=== PATIENT | female | born 1960 | race Caucasian/White ===

== ENCOUNTER 2017-04-23 14:37 | Inpatient (IN) | payer MEDICARE ==
[~2017-04-23] VITALS: Ht 175.3 cm; Wt 131.4 kg
[2017-04-23] MEDS ORDERED: NPH,100V SQ ×2 (15:24)
[2017-04-23] MEDS ORDERED: [UNRECOGNIZED DRUG - CODE] IV (15:24)
[2017-04-23] MEDS ORDERED: CEFX1I IV (15:24)
[2017-04-23] MEDS ORDERED: ATOR20TA86 PO (15:24)
[2017-04-23] MEDS ORDERED: HYDR10TA31 PO (15:24)
[2017-04-23] MEDS ORDERED: PRED10 PO (15:24)
[2017-04-23] MEDS ORDERED: DSS100 PO (15:24)
[2017-04-23] MEDS ORDERED: INSU100V3 SQ ×2 (15:24)
[2017-04-23] MEDS ORDERED: FERR-89 PO (15:24)
[2017-04-23] MEDS ORDERED: OMEP20 PO (15:24)
[2017-04-23] MEDS ORDERED: PERCT PO (15:24)
[2017-04-23] MEDS ORDERED: AMLO-512 PO (15:24)
[2017-04-23] MEDS ORDERED: ALBUTEROL SULFATE 2.5 MG/0.5 ML NEB SOLUTION NEB ONE (15:30)
[2017-04-23] MEDS ORDERED: IPRATROPIUM BROMIDE 0.5 MG/2.5 ML NEB SOLUTION NEB ONE (15:30)
[2017-04-23] MEDS ORDERED: AMPI2VIA9 IV (15:30)
[2017-04-23] MEDS ORDERED: CEFX2I IV (15:30)
[2017-04-23 16:01] LABS: BASOPHILS % (AUTO) 0.4 % (0.0-2.0); EOSINOPHILS % (AUTO) 0.5 % (1.0-6.0); HEMATOCRIT 26.2 % (36-46); HEMOGLOBIN 8.7 g/dL (12.0-16.0); LYMPHOCYTES # (AUTO) 1.4 K/uL (1.0-4.8); LYMPHOCYTES % (AUTO) 8.2 % (22.0-44.0); MEAN CORPUSCULAR HEMOGLOBIN 28.2 pg (26.0-34.0); MEAN CORPUSCULAR HGB CONC 33.1 G/dL (31.0-37.0); MEAN CORPUSCULAR VOLUME 85 fL (80-100); MONOCYTES # (AUTO) 0.7 K/uL (0.1-1.0); MONOCYTES % (AUTO) 4.2 % (2.0-9.0); NEUTROPHILS # (AUTO) 15.1 K/uL (1.8-7.7); PLATELET COUNT (AUTO) 375 K/uL (150-450); RED BLOOD CELL COUNT(AUTO) 3.07 MIL/uL (4.00-5.20); RED CELL DISTRIBUTION WIDTH 16.9 % (11.5-14.5)
[2017-04-23 16:06] LABS: NEUTROPHILS % (AUTO) 86.7 % (40.0-70.0)
[2017-04-23 16:14] LABS: ANION GAP 15 mmol/L (8-16); CALCIUM, TOTAL 8.8 mg/dL (8.8-10.5); CARBON DIOXIDE 20 mmol/L (22-29); CHLORIDE 106 mmol/L (98-107); CREATININE 2.45 mg/dL (0.60-1.30); GLOMERULAR FILTR. RATE CALC 20 mL/min (>60); GLUCOSE,RANDOM 239 mg/dL (70-110); POTASSIUM 4.3 mmol/L (3.5-5.1); SODIUM SERUM 141 mmol/L (136-145); UREA NITROGEN, BLOOD 45 mg/dL (7-18)
[2017-04-23 16:35] LABS: B-TYPE NATRIURETIC PEPTIDE 2030 pg/mL (0-100)
[2017-04-23 16:38] LABS: ALANINE AMINOTRANSFERASE 16 U/L (12-78); ALBUMIN 2.6 g/dL (3.4-5.0); ALKALINE PHOSPHATASE 71 U/L (46-116); ASPARTATE AMINOTRANSFERASE 12 U/L (15-37); BILIRUBIN,TOTAL 0.3 mg/dL (0.1-1.0); CREATINE KINASE MB 3.1 ng/mL (0-5); CREATINE KINASE, TOTAL 122 U/L (26-192)
[2017-04-23] MEDS ORDERED: FUROSEMIDE 40 MG/4 ML VIAL IVP ONE (16:45)
[2017-04-23] MEDS ORDERED: NITROGLYCERIN 2% (1 GM=INCH) PACKET TP ONE (16:45)
[2017-04-23] MEDS ORDERED: 0.9% SODIUM CHLORIDE 5 ML NEB SOLUTION NEB ONE (17:00)
[2017-04-23] MEDS ORDERED: AZITHROMYCIN 500 MG/NS 250 ML IV ONE (17:00)
[2017-04-23] MEDS ORDERED: CefTRIAXone 1 GM/DEXTROSE 50 ML IV ONE ×2 (17:00→21:30)
[2017-04-23 17:32] LABS: GLUCOSE,POINT OF CARE 269 MG/DL (70-110)
[2017-04-23 18:10] LABS: PLATELET MORPHOLOGY COMMENT NORMAL
[2017-04-23 18:17] LABS: INFLUENZA TYPE A NEGATIVE FOR TYPE A (NEGATIVE); INFLUENZA TYPE B NEGATIVE FOR TYPE B (NEGATIVE)
[2017-04-23] MEDS ORDERED: ACETAMINOPHEN 325 MG TABLET PO PRN (18:45)
[2017-04-23] MEDS ORDERED: 0.9% SODIUM CHLORIDE 10 ML SYRINGE IVP PRN (18:45)
[2017-04-23] MEDS ORDERED: IPRATROPIUM BROMIDE 0.5 MG/2.5 ML NEB SOLUTION NEB SCH (19:00)
[2017-04-23] MEDS ORDERED: ALBUTEROL SULFATE 2.5 MG/0.5 ML NEB SOLUTION NEB SCH (19:00)
[2017-04-23 19:07] LABS: APPEARANCE,URINE TURBID (CLEAR); BILIRUBIN,URINE NEGATIVE (NEGATIVE); GLUCOSE, URINE (UA) NEGATIVE (NEGATIVE); KETONES,URINE NEGATIVE (NEGATIVE); LEUKOCYTE ESTERASE ,URINE MODERATE (NEGATIVE); NITRATE,URINE NEGATIVE (NEGATIVE); OCCULT BLOOD,URINE MODERATE (NEGATIVE); PH,URINE 5.5 (5.0-8.0); PROTEIN,URINE SEE CONFIRM (NEGATIVE); UROBILINOGEN,URINE 0.2 mg/dL (<=1.0)
[2017-04-23 19:09] LABS: ABG A-A DIFF O2 409.2 mmHg (10-20.0); ABG BASE EXCESS -5.5 mmol/L (-2.0-3.0); ABG CARBOXYHEMOGLOBIN 1.5 % (0.0-1.5); ABG HCO3 20.4 mmol/L (22.0-26.0); ABG METHEMOGLOBIN 0.6 % (0.0-1.5); ABG OXYGEN CONTENT 12.5 mL/dL (15.0-23.0); ABG OXYGEN SATURATION 98.7 % (95.0-98.0); ABG OXYHEMOGLOBIN 96.6 % (94.0-100.0); ABG PCO2 35 mmHg (35-45); ABG PH 7.368 (7.35-7.450); PO2, ARTERIAL BG 124.2 mmHg (84.0-92.0); SOURCE, BLOOD GAS ARTERIAL; TEMPERATURE, FAHRENHEIT, BG 98.6 FAHREN (96.0-98.6)
[2017-04-23 19:10] LABS: O2 DEVICE,BLOOD GAS BIPAP (ROOM AIR); SITE, BLOOD GAS LFT RADIAL
[2017-04-23 19:17] LABS: BACTERIA,URINE Few /HPF (None Seen); SULFOSALICYLIC ACID,URINE 3+ (Negative); WBC,URINE 26-50 /HPF (0-5)
[2017-04-23 19:18] LABS: SQUAMOUS EPITHELIAL CELL,UR Moderate /LPF (None Seen); YEAST,URINE Many /HPF (None Seen)
[2017-04-23] MEDS ORDERED: MAGNESIUM HYDROXIDE SUSPENSION 30 ML UDCUP PO PRN (20:15)
[2017-04-23] MEDS ORDERED: ZOLPIDEM TARTRATE 5 MG TABLET PO PRN (20:15)
[2017-04-23] MEDS ORDERED: ONDANSETRON HCL 4 MG/2 ML VIAL IVP PRN (20:15)
[2017-04-23] MEDS ORDERED: BISACODYL 10 MG RECTAL RECTAL SUPPOSITORY PR PRN (20:15)
[2017-04-23] MEDS ORDERED: DEXTROSE 50%-WATER 25 GM/50 ML SYRINGE IVP PRN (20:45)
[2017-04-23] MEDS ORDERED: AMPICILLIN SODIUM 2 GM IV SCH (21:00)
[2017-04-23 21:07] VITALS: BP 127/65
[2017-04-23] MEDS ORDERED: SODIUM CHLORIDE 0.9% 500 ML IV ONE (21:50)
[2017-04-23] MEDS: FUROSEMIDE 20 MG/2 ML VIAL IVP SCH (21:55)
[2017-04-23] MEDS: DOCUSATE SODIUM 100 MG CAPSULE PO SCH (21:55)
[2017-04-23] MEDS: HEPARIN SODIUM,PORCINE 5,000 UNITS/ML VIAL SQ SCH (21:55)
[2017-04-23] MEDS ORDERED: AMPICILLIN SODIUM 2 GM/NS 100 ML IV SCH ×3 (22:00)
[2017-04-23] MEDS: PIPERACILLIN SODIUM/TAZOBACTAM 2.25 GM in DEXTROSE 5%-WATER 50 ML IV SCH (22:24)
[2017-04-23] MEDS ORDERED: VANCOMYCIN HCL IV ONE (23:00)
[2017-04-23] MEDS ORDERED: WATER IV ONE (23:00)
[2017-04-23] MEDS ORDERED: DEXTROSE 5% IV ONE (23:00)
[2017-04-23] MEDS ORDERED: VANCOMYCIN HCL 1 GM/D5% WATER 200 ML IV ONE (23:30)
[2017-04-23 23:49] VITALS: BP 134/64
[2017-04-24] MEDS ORDERED: VANCOMYCIN HCL 1 GM/D5% WATER 200 ML IV ONE (01:30)
[2017-04-24] MEDS: PIPERACILLIN SODIUM/TAZOBACTAM 2.25 GM in DEXTROSE 5%-WATER 50 ML IV SCH ×4 (04:09→22:39)
[2017-04-24] MEDS: ALBUTEROL SULFATE 2.5 MG/0.5 ML NEB SOLUTION NEB PRN ×2 (06:02→08:24)
[2017-04-24] MEDS: IPRATROPIUM BROMIDE 0.5 MG/2.5 ML NEB SOLUTION NEB PRN ×2 (06:02→08:24)
[2017-04-24 06:07] VITALS: BP 151/69
[2017-04-24] MEDS: OxyCODONE HCL/ACETAMINOPHEN 5-325 MG TABLET PO PRN ×3 (06:16→20:09)
[2017-04-24] MEDS: LORazepam 1 MG TABLET PO PRN ×3 (06:16→20:34)
[2017-04-24 06:23] LABS: BASOPHILS % (AUTO) 0.3 % (0.0-2.0); EOSINOPHILS % (AUTO) 1.2 % (1.0-6.0); HEMATOCRIT 24.6 % (36-46); HEMOGLOBIN 8.1 g/dL (12.0-16.0); LYMPHOCYTES # (AUTO) 2.9 K/uL (1.0-4.8); LYMPHOCYTES % (AUTO) 15.9 % (22.0-44.0); MEAN CORPUSCULAR HEMOGLOBIN 28.2 pg (26.0-34.0); MEAN CORPUSCULAR HGB CONC 32.9 G/dL (31.0-37.0); MEAN CORPUSCULAR VOLUME 86 fL (80-100); MONOCYTES # (AUTO) 1.1 K/uL (0.1-1.0); NEUTROPHILS # (AUTO) 13.8 K/uL (1.8-7.7); NEUTROPHILS % (AUTO) 76.6 % (40.0-70.0); PLATELET COUNT (AUTO) 395 K/uL (150-450); RED BLOOD CELL COUNT(AUTO) 2.86 MIL/uL (4.00-5.20); RED CELL DISTRIBUTION WIDTH 17.1 % (11.5-14.5)
[2017-04-24] MEDS: INSULIN ASPART 100 UNITS/ML SQ PRN ×3 (06:31→17:43)
[2017-04-24 06:48] LABS: ALBUMIN 2.4 g/dL (3.4-5.0); BILIRUBIN,TOTAL 0.4 mg/dL (0.1-1.0); CALCIUM, TOTAL 8.5 mg/dL (8.8-10.5); CHOL/HDL RATIO 2.7 (3.9-5.7); CREATININE 2.46 mg/dL (0.60-1.30); FREE T4 (FREE THYROXINE) 1.18 ng/dL (0.76-1.46); THYROID STIMULATING HORMONE 1.22 uIU/mL (0.36-3.74); TOTAL PROTEIN, SERUM 7.4 g/dL (6.4-8.2)
[2017-04-24 07:18] LABS: HEMOGLOBIN A1C 8.8 % (4.5-6.2)
[2017-04-24 07:51] VITALS: BP 135/64
[2017-04-24] MEDS: VANCOMYCIN HCL 1.5 GM in DEXTROSE 5%-WATER 250 ML IV SCH (08:36)
[2017-04-24] MEDS: PANTOPRAZOLE SODIUM 40 MG/VIAL IVP SCH (08:37)
[2017-04-24] MEDS: HEPARIN SODIUM,PORCINE 5,000 UNITS/ML VIAL SQ SCH ×2 (08:37→20:09)
[2017-04-24] MEDS: DOCUSATE SODIUM 100 MG CAPSULE PO SCH ×2 (08:37→20:08)
[2017-04-24] MEDS: FERROUS SULFATE 325 MG EC TABLET PO SCH (08:37)
[2017-04-24] MEDS: ATORVASTATIN CALCIUM 20 MG TABLET PO SCH (08:37)
[2017-04-24] MEDS: PredniSONE 10 MG TABLET PO SCH (08:37)
[2017-04-24 08:38] LABS: FOLATE SERUM 11.2 ng/mL (5.4-)
[2017-04-24] MEDS: FUROSEMIDE 20 MG/2 ML VIAL IVP SCH (10:01)
[2017-04-24] MEDS: CefTRIAXone SODIUM 2 GM in DEXTROSE 5%-WATER 50 ML IV SCH ×2 (10:33→20:06)
[2017-04-24 11:41] VITALS: BP 122/45
[2017-04-24] MEDS: ASPIRIN 81 MG EC TABLET PO SCH (14:12)
[2017-04-24] MEDS: PARoxetine HCL 20 MG TABLET PO SCH (14:12)
[2017-04-24] MEDS: EPOETIN ALFA 10,000 UNITS/ML VIAL SQ SCH (14:12)
[2017-04-24 15:14] VITALS: BP 128/67
[2017-04-24 15:47] LABS: GLUCOMETER DEV NAME(LOC) 5N 2R; GLUCOSE,POINT OF CARE 212 MG/DL (70-110)
[2017-04-24] MEDS: FUROSEMIDE 40 MG/4 ML VIAL IVP SCH ×2 (16:00→20:08)
[2017-04-24] MEDS ORDERED: FUROSEMIDE 100 MG/10 ML VIAL IVP SCH (16:00)
[2017-04-24 16:06] LABS: ABG A-A DIFF O2 237.8 mmHg (10-20.0); ABG BASE EXCESS -4.5 mmol/L (-2.0-3.0); ABG CARBOXYHEMOGLOBIN 1.1 % (0.0-1.5); ABG HCO3 21.1 mmol/L (22.0-26.0); ABG METHEMOGLOBIN 0.3 % (0.0-1.5); ABG OXYGEN CONTENT 12.9 mL/dL (15.0-23.0); ABG OXYGEN SATURATION 94.8 % (95.0-98.0); ABG OXYHEMOGLOBIN 93.5 % (94.0-100.0); ABG PCO2 37 mmHg (35-45); ABG PH 7.373 (7.35-7.450); ABG TOTAL HEMOGLOBIN 9.7 G/dL (12.0-18.0); O2 DEVICE,BLOOD GAS BIPAP (ROOM AIR); PO2, ARTERIAL BG 77.6 mmHg (84.0-92.0); SITE, BLOOD GAS LFT RADIAL; SOURCE, BLOOD GAS ARTERIAL; TEMPERATURE, FAHRENHEIT, BG 98.6 FAHREN (96.0-98.6)
[2017-04-24] MEDS ORDERED: CefTRIAXone 1 GM/DEXTROSE 50 ML IV SCH (17:00)
[2017-04-24] MEDS ORDERED: INSULIN REGULAR, HUMAN 100 UNITS/ML SQ SCH (17:30)
[2017-04-24] MEDS ORDERED: AZITHROMYCIN 500 MG/NS 250 ML IV SCH (18:00)
[2017-04-24 19:38] LABS: CREATININE,URINE RANDOM 92.5 mg/dL (30.0-125.0); SODIUM,URINE RANDOM 63 mmol/l (20-110); UREA NITROGEN,URINE RANDOM 444 mg/dL (350-1000)
[2017-04-24] MEDS ORDERED: SODIUM CHLORIDE 0.9% 250 ML IV ONE (19:48)
[2017-04-24 20:01] LABS: PROTEIN,URINE RANDOM 782 mg/dL (0-11.9)
[2017-04-24 20:05] VITALS: BP 154/83
[2017-04-24] MEDS: INSULIN NPH,HUMAN ISOPHANE 100 UNITS/ML SQ SCH (20:12)
[2017-04-24] MEDS ORDERED: CefTRIAXone SODIUM 2 GM/VIAL IV SCH (21:00)
[2017-04-24 21:05] VITALS: BP 157/92
[2017-04-24] MEDS: HydrALAZINE HCL 10 MG TABLET PO SCH (21:56)
[2017-04-25] VITALS (8 sets, daily range): BP systolic 14–160; BP diastolic 51–75
[2017-04-25] MEDS: LORazepam 1 MG TABLET PO PRN ×3 (03:17→22:09)
[2017-04-25] MEDS: PIPERACILLIN SODIUM/TAZOBACTAM 2.25 GM in DEXTROSE 5%-WATER 50 ML IV SCH ×4 (03:17→22:10)
[2017-04-25] MEDS: OxyCODONE HCL/ACETAMINOPHEN 5-325 MG TABLET PO PRN ×3 (03:17→10:08)
[2017-04-25] MEDS: INSULIN REGULAR, HUMAN 100 UNITS/ML SQ SCH (06:05)
[2017-04-25 06:06] LABS: BASOPHILS % (AUTO) 0.3 % (0.0-2.0); EOSINOPHILS % (AUTO) 1.7 % (1.0-6.0); HEMATOCRIT 23.8 % (36-46); HEMOGLOBIN 7.8 g/dL (12.0-16.0); LYMPHOCYTES # (AUTO) 2.6 K/uL (1.0-4.8); LYMPHOCYTES % (AUTO) 18.6 % (22.0-44.0); MEAN CORPUSCULAR HEMOGLOBIN 28.6 pg (26.0-34.0); MEAN CORPUSCULAR VOLUME 87 fL (80-100); MONOCYTES # (AUTO) 0.7 K/uL (0.1-1.0); MONOCYTES % (AUTO) 4.8 % (2.0-9.0); NEUTROPHILS # (AUTO) 10.5 K/uL (1.8-7.7); NEUTROPHILS % (AUTO) 74.6 % (40.0-70.0); PLATELET COUNT (AUTO) 306 K/uL (150-450); RED BLOOD CELL COUNT(AUTO) 2.75 MIL/uL (4.00-5.20)
[2017-04-25 06:27] LABS: CALCIUM, TOTAL 8.3 mg/dL (8.8-10.5); CREATININE 2.77 mg/dL (0.60-1.30); POTASSIUM 3.6 mmol/L (3.5-5.1)
[2017-04-25] MEDS: INSULIN NPH,HUMAN ISOPHANE 100 UNITS/ML SQ SCH ×2 (09:00→21:00)
[2017-04-25] MEDS ORDERED: OMEPRAZOLE 20 MG CAPSULE PO SCH (09:00)
[2017-04-25] MEDS ORDERED: SODIUM CHLORIDE 0.9% 100 ML ONE (10:04)
[2017-04-25] MEDS: PARoxetine HCL 20 MG TABLET PO SCH (10:08)
[2017-04-25] MEDS: PredniSONE 10 MG TABLET PO SCH (10:08)
[2017-04-25] MEDS: FERROUS SULFATE 325 MG EC TABLET PO SCH (10:08)
[2017-04-25] MEDS: AmLODIPine BESYLATE 10 MG TABLET PO SCH (10:08)
[2017-04-25] MEDS: PANTOPRAZOLE SODIUM 40 MG/VIAL IVP SCH (10:09)
[2017-04-25] MEDS: CefTRIAXone SODIUM 2 GM in DEXTROSE 5%-WATER 50 ML IV SCH ×2 (10:09→22:09)
[2017-04-25] MEDS: FUROSEMIDE 40 MG/4 ML VIAL IVP SCH ×3 (10:09→22:10)
[2017-04-25] MEDS: HEPARIN SODIUM,PORCINE 5,000 UNITS/ML VIAL SQ SCH ×2 (10:24→22:10)
[2017-04-25 10:28] LABS: GLUCOSE,POINT OF CARE 127 MG/DL (70-110)
[2017-04-25] MEDS: VANCOMYCIN HCL 1.5 GM in DEXTROSE 5%-WATER 250 ML IV SCH (12:00)
[2017-04-25] MEDS: ATORVASTATIN CALCIUM 20 MG TABLET PO SCH (12:00)
[2017-04-25] MEDS: HydrALAZINE HCL 10 MG TABLET PO SCH ×2 (12:00→22:09)
[2017-04-25] MEDS: ASPIRIN 81 MG EC TABLET PO SCH (12:01)
[2017-04-25] MEDS: DOCUSATE SODIUM 100 MG CAPSULE PO SCH ×2 (12:01→22:09)
[2017-04-25 17:28] LABS: GLUCOMETER DEV NAME(LOC) 5N 1M; GLUCOSE,POINT OF CARE 162 MG/DL (70-110)
[2017-04-25 17:28] LABS: GLUCOMETER DEV NAME(LOC) 5N 1M; GLUCOSE,POINT OF CARE 238 MG/DL (70-110)
[2017-04-25 17:29] LABS: GLUCOMETER DEV NAME(LOC) 5N 1M; GLUCOSE,POINT OF CARE 160 MG/DL (70-110)
[2017-04-25 17:33] LABS: GLUCOMETER DEV NAME(LOC) 5N 2R; GLUCOSE,POINT OF CARE 191 MG/DL (70-110)
[2017-04-25 18:03] LABS: GLUCOMETER DEV NAME(LOC) 5N 1M; GLUCOSE,POINT OF CARE 174 MG/DL (70-110)
[2017-04-25 18:53] LABS: GLUCOSE,POINT OF CARE 172 MG/DL (70-110)
[2017-04-25] MEDS: INSULIN ASPART 100 UNITS/ML SQ PRN (21:59)
[2017-04-26 00:18] LABS: GLUCOMETER DEV NAME(LOC) 5N 1M; GLUCOSE,POINT OF CARE 170 MG/DL (70-110)
[2017-04-26 00:46] VITALS: BP 152/75
[2017-04-26] MEDS: PIPERACILLIN SODIUM/TAZOBACTAM 2.25 GM in DEXTROSE 5%-WATER 50 ML IV SCH ×4 (04:19→22:29)
[2017-04-26 05:00] VITALS: BP 150/78
[2017-04-26] MEDS: INSULIN REGULAR, HUMAN 100 UNITS/ML SQ SCH (06:13)
[2017-04-26] MEDS: OxyCODONE HCL/ACETAMINOPHEN 5-325 MG TABLET PO PRN ×2 (06:17→22:29)
[2017-04-26 07:13] VITALS: BP 160/64
[2017-04-26] MEDS: LORazepam 1 MG TABLET PO PRN (07:33)
[2017-04-26] MEDS: ASPIRIN 81 MG EC TABLET PO SCH (07:37)
[2017-04-26] MEDS: VANCOMYCIN HCL 1.5 GM in DEXTROSE 5%-WATER 250 ML IV SCH (07:37)
[2017-04-26] MEDS: DOCUSATE SODIUM 100 MG CAPSULE PO SCH ×2 (07:39→20:27)
[2017-04-26] MEDS: INSULIN NPH,HUMAN ISOPHANE 100 UNITS/ML SQ SCH (07:40)
[2017-04-26] MEDS: HydrALAZINE HCL 10 MG TABLET PO SCH ×2 (07:48→20:27)
[2017-04-26] MEDS: ATORVASTATIN CALCIUM 20 MG TABLET PO SCH (07:48)
[2017-04-26] MEDS: FERROUS SULFATE 325 MG EC TABLET PO SCH (07:48)
[2017-04-26] MEDS: HEPARIN SODIUM,PORCINE 5,000 UNITS/ML VIAL SQ SCH ×2 (07:49→20:28)
[2017-04-26] MEDS: FUROSEMIDE 40 MG/4 ML VIAL IVP SCH ×2 (07:49→20:27)
[2017-04-26] MEDS: AmLODIPine BESYLATE 10 MG TABLET PO SCH (07:49)
[2017-04-26] MEDS: PARoxetine HCL 20 MG TABLET PO SCH (07:49)
[2017-04-26] MEDS: PANTOPRAZOLE SODIUM 40 MG/VIAL IVP SCH (07:49)
[2017-04-26 08:04] LABS: BASOPHILS # (AUTO) 0.04 K/uL (0.00-0.20); BASOPHILS % (AUTO) 0.3 % (0.0-2.0); EOSINOPHILS # (AUTO) 0.31 K/uL (0.00-0.70); EOSINOPHILS % (AUTO) 2.31 % (1.0-6.0); HEMATOCRIT 23.7 % (36-46); HEMOGLOBIN 7.6 g/dL (12.0-16.0); LYMPHOCYTES # (AUTO) 2.7 K/uL (1.0-4.8); LYMPHOCYTES % (AUTO) 20.2 % (22.0-44.0); MEAN CORPUSCULAR HEMOGLOBIN 28.3 pg (26.0-34.0); MEAN CORPUSCULAR HGB CONC 32.1 G/dL (31.0-37.0); MEAN CORPUSCULAR VOLUME 88 fL (80-100); MONOCYTES # (AUTO) 0.6 K/uL (0.1-1.0); MONOCYTES % (AUTO) 4.4 % (2.0-9.0); NEUTROPHILS # (AUTO) 9.7 K/uL (1.8-7.7); NEUTROPHILS % (AUTO) 72.8 % (40.0-70.0); PLATELET COUNT (AUTO) 315 K/uL (150-450); RED BLOOD CELL COUNT(AUTO) 2.69 MIL/uL (4.00-5.20); RED CELL DISTRIBUTION WIDTH 17.3 % (11.5-14.5)
[2017-04-26 09:55] LABS: CALCIUM, TOTAL 8.3 mg/dL (8.8-10.5); CREATININE 2.79 mg/dL (0.60-1.30); VANCOMYCIN,RANDOM 31.9 mcg/mL (25.0-50.0)
[2017-04-26 10:22] LABS: POTASSIUM 3.6 mmol/L (3.5-5.1)
[2017-04-26] MEDS: PredniSONE 10 MG TABLET PO SCH (10:51)
[2017-04-26] MEDS: CefTRIAXone SODIUM 2 GM in DEXTROSE 5%-WATER 50 ML IV SCH ×2 (10:51→20:28)
[2017-04-26] MEDS: EPOETIN ALFA 10,000 UNITS/ML VIAL SQ SCH (10:51)
[2017-04-26 11:43] VITALS: BP 149/89
[2017-04-26] MEDS: LORazepam 2 MG/ML VIAL IVP PRN ×2 (11:58→16:24)
[2017-04-26] MEDS: INSULIN ASPART 100 UNITS/ML SQ PRN ×3 (12:08→21:16)
[2017-04-26 12:26] LABS: ORGANISM ID Not indicated.; S PNEUMO SOURCE Urine; STREP PNEUMONIAE AG URINE Negative (Negative); STREP.PNEUMO BODY FLUID CULT. Not Indicated
[2017-04-26 15:22] LABS: LEGIONELLA PNEUMO AG URINE Negative (Negative)
[2017-04-26 15:33] VITALS: BP 152/64
[2017-04-26 19:55] VITALS: BP 154/69
[2017-04-26 23:07] LABS: GLUCOMETER DEV NAME(LOC) 5N 1M; GLUCOSE,POINT OF CARE 116 MG/DL (70-110)
[2017-04-26 23:07] LABS: GLUCOMETER DEV NAME(LOC) 5N 1M; GLUCOSE,POINT OF CARE 208 MG/DL (70-110)
[2017-04-26 23:08] LABS: GLUCOMETER DEV NAME(LOC) 5N 1M; GLUCOSE,POINT OF CARE 223 MG/DL (70-110)
[2017-04-26 23:08] LABS: GLUCOMETER DEV NAME(LOC) 5N 1M; GLUCOSE,POINT OF CARE 187 MG/DL (70-110)
[2017-04-27] VITALS (8 sets, daily range): BP systolic 135–161; BP diastolic 61–79
[2017-04-27] MEDS: PIPERACILLIN SODIUM/TAZOBACTAM 2.25 GM in DEXTROSE 5%-WATER 50 ML IV SCH ×4 (04:22→21:39)
[2017-04-27] MEDS: INSULIN ASPART 100 UNITS/ML SQ PRN ×3 (06:05→21:05)
[2017-04-27 06:29] LABS: GLUCOMETER DEV NAME(LOC) 5N 2R; GLUCOSE,POINT OF CARE 169 MG/DL (70-110)
[2017-04-27 07:42] LABS: CREATININE 2.66 mg/dL (0.60-1.30)
[2017-04-27] MEDS: FUROSEMIDE 40 MG/4 ML VIAL IVP SCH ×2 (08:02→20:43)
[2017-04-27] MEDS: CefTRIAXone SODIUM 2 GM in DEXTROSE 5%-WATER 50 ML IV SCH ×2 (08:02→20:24)
[2017-04-27] MEDS: HEPARIN SODIUM,PORCINE 5,000 UNITS/ML VIAL SQ SCH ×2 (08:03→20:44)
[2017-04-27] MEDS: PANTOPRAZOLE SODIUM 40 MG/VIAL IVP SCH (08:03)
[2017-04-27] MEDS: LORazepam 1 MG TABLET PO PRN (08:17)
[2017-04-27 08:44] LABS: CALCIUM, TOTAL 8.3 mg/dL (8.8-10.5); POTASSIUM 3.4 mmol/L (3.5-5.1)
[2017-04-27] MEDS: VANCOMYCIN HCL 1 GM/D5% WATER 200 ML IV SCH (09:08)
[2017-04-27] MEDS: FERROUS SULFATE 325 MG EC TABLET PO SCH (09:11)
[2017-04-27] MEDS: HydrALAZINE HCL 10 MG TABLET PO SCH ×2 (09:11→21:39)
[2017-04-27] MEDS: PARoxetine HCL 20 MG TABLET PO SCH (09:12)
[2017-04-27] MEDS: PredniSONE 10 MG TABLET PO SCH (09:12)
[2017-04-27] MEDS: DOCUSATE SODIUM 100 MG CAPSULE PO SCH ×2 (09:12→20:42)
[2017-04-27] MEDS: AmLODIPine BESYLATE 10 MG TABLET PO SCH (09:12)
[2017-04-27] MEDS: ATORVASTATIN CALCIUM 20 MG TABLET PO SCH (09:12)
[2017-04-27] MEDS: ASPIRIN 81 MG EC TABLET PO SCH (09:12)
[2017-04-27] MEDS: INSULIN DETEMIR 100 UNITS/ML SQ SCH (09:15)
[2017-04-27] MEDS: OxyCODONE HCL/ACETAMINOPHEN 5-325 MG TABLET PO PRN (09:17)
[2017-04-27] MEDS: LORazepam 2 MG/ML VIAL IVP PRN ×2 (11:16→16:22)
[2017-04-27] MEDS ORDERED: SODIUM CHLORIDE 0.9% 50 ML ONE (11:26)
[2017-04-27] MEDS ORDERED: POTASSIUM CHLORIDE 10 MEQ ER TABLET PO ONE (11:30)
[2017-04-27] MEDS: ENALAPRIL MALEATE 5 MG TABLET PO SCH (11:30)
[2017-04-27] MEDS ORDERED: SODIUM CHLORIDE 0.9% 500 ML IV ONE (16:17)
[2017-04-27 17:28] LABS: GLUCOMETER DEV NAME(LOC) 6N 2D; GLUCOSE,POINT OF CARE 208 MG/DL (70-110)
[2017-04-27 23:43] LABS: GLUCOMETER DEV NAME(LOC) 6N 2D; GLUCOSE,POINT OF CARE 192 MG/DL (70-110)
[2017-04-28] VITALS: BP 149/76
[2017-04-28] MEDS: LORazepam 1 MG TABLET PO PRN (02:44)
[2017-04-28] MEDS: PIPERACILLIN SODIUM/TAZOBACTAM 2.25 GM in DEXTROSE 5%-WATER 50 ML IV SCH ×4 (03:43→22:06)
[2017-04-28] MEDS ORDERED: SODIUM CHLORIDE 0.9% 500 ML IV ONE (03:47)
[2017-04-28 04:00] VITALS: BP 127/67
[2017-04-28] MEDS: OxyCODONE HCL/ACETAMINOPHEN 5-325 MG TABLET PO PRN (05:47)
[2017-04-28] MEDS: INSULIN ASPART 100 UNITS/ML SQ PRN (06:31)
[2017-04-28 06:52] LABS: GLUCOMETER DEV NAME(LOC) 6N 2D; GLUCOSE,POINT OF CARE 146 MG/DL (70-110)
[2017-04-28 07:38] LABS: BASOPHILS # (AUTO) 0.07 K/uL (0.00-0.20); BASOPHILS % (AUTO) 0.4 % (0.0-2.0); EOSINOPHILS # (AUTO) 0.43 K/uL (0.00-0.70); EOSINOPHILS % (AUTO) 2.78 % (1.0-6.0); HEMATOCRIT 26.6 % (36-46); HEMOGLOBIN 8.7 g/dL (12.0-16.0); LYMPHOCYTES # (AUTO) 2.7 K/uL (1.0-4.8); LYMPHOCYTES % (AUTO) 17.9 % (22.0-44.0); MEAN CORPUSCULAR HEMOGLOBIN 28.4 pg (26.0-34.0); MEAN CORPUSCULAR HGB CONC 32.5 G/dL (31.0-37.0); MEAN CORPUSCULAR VOLUME 87 fL (80-100); MONOCYTES # (AUTO) 0.8 K/uL (0.1-1.0); MONOCYTES % (AUTO) 5.2 % (2.0-9.0); NEUTROPHILS # (AUTO) 11.3 K/uL (1.8-7.7); NEUTROPHILS % (AUTO) 73.7 % (40.0-70.0); PLATELET COUNT (AUTO) 371 K/uL (150-450); RED BLOOD CELL COUNT(AUTO) 3.05 MIL/uL (4.00-5.20); RED CELL DISTRIBUTION WIDTH 17.2 % (11.5-14.5)
[2017-04-28 07:54] LABS: CALCIUM, TOTAL 8.8 mg/dL (8.8-10.5); CREATININE 2.51 mg/dL (0.60-1.30); MAGNESIUM 1.9 mg/dL (1.80-2.40); PHOSPHORUS 3.8 mg/dL (2.5-4.9); POTASSIUM 3.3 mmol/L (3.5-5.1)
[2017-04-28] MEDS: FERROUS SULFATE 325 MG EC TABLET PO SCH (08:00)
[2017-04-28] MEDS: ENALAPRIL MALEATE 5 MG TABLET PO SCH (09:00)
[2017-04-28] MEDS: INSULIN DETEMIR 100 UNITS/ML SQ SCH (09:00)
[2017-04-28] MEDS: AmLODIPine BESYLATE 10 MG TABLET PO SCH (09:00)
[2017-04-28] MEDS: HydrALAZINE HCL 10 MG TABLET PO SCH ×2 (09:00→21:00)
[2017-04-28] MEDS: HEPARIN SODIUM,PORCINE 5,000 UNITS/ML VIAL SQ SCH ×2 (09:00→21:17)
[2017-04-28] MEDS: PARoxetine HCL 20 MG TABLET PO SCH (09:00)
[2017-04-28] MEDS: PANTOPRAZOLE SODIUM 40 MG/VIAL IVP SCH (09:00)
[2017-04-28] MEDS: DOCUSATE SODIUM 100 MG CAPSULE PO SCH ×2 (09:00→21:00)
[2017-04-28] MEDS: PredniSONE 10 MG TABLET PO SCH (09:00)
[2017-04-28] MEDS: ASPIRIN 81 MG EC TABLET PO SCH (09:00)
[2017-04-28] MEDS: ATORVASTATIN CALCIUM 20 MG TABLET PO SCH (09:00)
[2017-04-28 10:23] LABS: GLUCOMETER DEV NAME(LOC) 5N 1M; GLUCOSE,POINT OF CARE 217 MG/DL (70-110)
[2017-04-28] MEDS: LORazepam 2 MG/ML VIAL IVP PRN ×2 (10:29→15:34)
[2017-04-28] MEDS: FUROSEMIDE 40 MG/4 ML VIAL IVP SCH ×2 (10:32→21:19)
[2017-04-28] MEDS: CefTRIAXone SODIUM 2 GM in DEXTROSE 5%-WATER 50 ML IV SCH ×2 (10:43→21:20)
[2017-04-28] MEDS: VANCOMYCIN HCL 1 GM/D5% WATER 200 ML IV SCH (10:46)
[2017-04-28] MEDS: EPOETIN ALFA 10,000 UNITS/ML VIAL SQ SCH (10:46)
[2017-04-28 11:00] VITALS: BP 155/77
[2017-04-28 11:53] LABS: GLUCOMETER DEV NAME(LOC) 6N 1E; GLUCOSE,POINT OF CARE 181 MG/DL (70-110)
[2017-04-28] MEDS ORDERED: HYDROmorphone 2 MG/ML SYRINGE ONE (13:58)
[2017-04-28] MEDS: HYDROmorphone 2 MG/ML SYRINGE IVP SCH ×5 (14:04→23:50)
[2017-04-28] MEDS: POTASSIUM CHL 10 MEQ/WATER 50 ML IV SCH ×2 (14:10→15:34)
[2017-04-28] MEDS ORDERED: SODIUM CHLORIDE 0.9% 1,000 ML IV ONE (15:42)
[2017-04-28 15:55] VITALS: BP 134/79
[2017-04-28 23:54] VITALS: BP 133/73
[2017-04-29] MEDS: LORazepam 2 MG/ML VIAL IVP PRN ×4 (00:06→17:12)
[2017-04-29] MEDS: HYDROmorphone 2 MG/ML SYRINGE IVP SCH ×11 (02:08→23:28)
[2017-04-29 04:06] VITALS: BP 146/67
[2017-04-29] MEDS: PIPERACILLIN SODIUM/TAZOBACTAM 2.25 GM in DEXTROSE 5%-WATER 50 ML IV SCH ×4 (04:08→21:54)
[2017-04-29 07:58] VITALS: BP 137/61
[2017-04-29] MEDS: FERROUS SULFATE 325 MG EC TABLET PO SCH (08:00)
[2017-04-29] MEDS: VANCOMYCIN HCL 1 GM/D5% WATER 200 ML IV SCH (08:00)
[2017-04-29] MEDS: ENALAPRIL MALEATE 5 MG TABLET PO SCH (09:00)
[2017-04-29] MEDS: PARoxetine HCL 20 MG TABLET PO SCH (09:00)
[2017-04-29] MEDS: ASPIRIN 81 MG EC TABLET PO SCH (09:00)
[2017-04-29] MEDS: INSULIN DETEMIR 100 UNITS/ML SQ SCH (09:00)
[2017-04-29] MEDS: ATORVASTATIN CALCIUM 20 MG TABLET PO SCH (09:00)
[2017-04-29] MEDS: HEPARIN SODIUM,PORCINE 5,000 UNITS/ML VIAL SQ SCH (09:00)
[2017-04-29] MEDS: AmLODIPine BESYLATE 10 MG TABLET PO SCH (09:00)
[2017-04-29] MEDS: DOCUSATE SODIUM 100 MG CAPSULE PO SCH (09:00)
[2017-04-29] MEDS: CefTRIAXone SODIUM 2 GM in DEXTROSE 5%-WATER 50 ML IV SCH ×2 (09:00→20:50)
[2017-04-29] MEDS: HydrALAZINE HCL 10 MG TABLET PO SCH (09:00)
[2017-04-29] MEDS: PredniSONE 10 MG TABLET PO SCH (09:00)
[2017-04-29 09:13] LABS: CALCIUM, TOTAL 8.5 mg/dL (8.8-10.5); CREATININE 2.62 mg/dL (0.60-1.30); MAGNESIUM 1.9 mg/dL (1.80-2.40); PHOSPHORUS 4.3 mg/dL (2.5-4.9); POTASSIUM 3.5 mmol/L (3.5-5.1)
[2017-04-29] MEDS: FUROSEMIDE 40 MG/4 ML VIAL IVP SCH ×2 (11:00→20:50)
[2017-04-29] MEDS: PANTOPRAZOLE SODIUM 40 MG/VIAL IVP SCH (11:00)
[2017-04-29 15:30] VITALS: BP 155/63
[2017-04-29 19:32] VITALS: BP 134/54
[2017-04-29 23:24] VITALS: BP 165/70
[2017-04-30] MEDS: HYDROmorphone 2 MG/ML SYRINGE IVP SCH ×6 (01:55→11:02)
[2017-04-30] MEDS: PIPERACILLIN SODIUM/TAZOBACTAM 2.25 GM in DEXTROSE 5%-WATER 50 ML IV SCH (04:01)
[2017-04-30 05:06] VITALS: BP 139/59
[2017-04-30 07:35] VITALS: BP 158/70
[2017-04-30] MEDS ORDERED: VANCOMYCIN HCL 1 GM/D5% WATER 200 ML IV SCH (08:00)
[2017-04-30] MEDS: PANTOPRAZOLE SODIUM 40 MG/VIAL IVP SCH (08:43)
[2017-04-30] MEDS: FUROSEMIDE 40 MG/4 ML VIAL IVP SCH ×2 (08:45→21:07)
[2017-04-30] MEDS: CefTRIAXone SODIUM 2 GM in DEXTROSE 5%-WATER 50 ML IV SCH (08:55)
[2017-04-30 12:00] VITALS: BP 115/72
[2017-04-30] MEDS: HYDROmorphone HCL 50 MG/NS/PF 100 ML IV PRN (13:53)
[2017-04-30] MEDS: LORazepam 2 MG/ML VIAL IVP PRN (17:25)
[2017-04-30 20:00] VITALS: BP 151/72
[2017-04-30] MEDS ORDERED: LORazepam 2 MG/ML VIAL IVP PRN (20:45)
[2017-04-30 23:56] VITALS: BP 118/43
[2017-05-01] VITALS (7 sets, daily range): BP systolic 113–126; BP diastolic 49–66
[2017-05-01] MEDS: FUROSEMIDE 40 MG/4 ML VIAL IVP SCH (08:27)
[2017-05-01] MEDS: LORazepam 2 MG/ML VIAL IVP PRN ×3 (11:59→19:51)
[2017-05-01] MEDS: HYDROmorphone HCL 50 MG/NS/PF 100 ML IV PRN (20:35)
[2017-05-02 04:55] VITALS: BP 159/70
[2017-05-02] MEDS: LORazepam 2 MG/ML VIAL IVP PRN ×5 (05:04→20:43)
[2017-05-02 07:57] VITALS: BP 132/58
[2017-05-02 11:32] VITALS: BP 126/52
[2017-05-02 15:35] VITALS: BP 125/51
[2017-05-02 19:46] VITALS: BP 127/61
[2017-05-02] MEDS ORDERED: HYOSCYAMINE SULFATE 0.125 MG TAB SL PRN (21:45)
[2017-05-03 10:43] LABS: IGM (IMMUNOFIXATION) 98 mg/dL (26-217)
== END 2017-05-03 00:30 | disposition expired | DRG 871 ==
LOC: EMS 14:38 → 5N 17:44 → ICU 04-24 18:20 → 5N 04-25 09:20 → 6N 04-27 15:40
PROVIDERS: ADMIT Internal Medicine Geriatric Medicine; ATTEND Internal Medicine Geriatric Medicine
PROC: 5A09557 Assistance with Respiratory Ventilation, Greater than 96 Consecutive Hours, Continuous Positive Airway Pressure (ICD-10-PCS; principal; 2017-04-23)
DX: A41.9 Sepsis, unspecified organism (principal); J96.01 Acute respiratory failure with hypoxia; I33.0 Acute and subacute infective endocarditis; G93.41 Metabolic encephalopathy; I50.31 Acute diastolic (congestive) heart failure; N17.9 Acute kidney failure, unspecified; J18.9 Pneumonia, unspecified organism; E44.0 Moderate protein-calorie malnutrition; Z68.41 Body mass index [BMI] 40.0-44.9, adult; N39.0 Urinary tract infection, site not specified; I13.0 Hypertensive heart and chronic kidney disease with heart failure and stage 1 through stage 4 chronic kidney disease, or unspecified chronic kidney disease; L97.919 Non-pressure chronic ulcer of unspecified part of right lower leg with unspecified severity; N04.9 Nephrotic syndrome with unspecified morphologic changes; E66.01 Morbid (severe) obesity due to excess calories; F41.9 Anxiety disorder, unspecified; K21.9 Gastro-esophageal reflux disease without esophagitis; M06.9 Rheumatoid arthritis, unspecified; I89.0 Lymphedema, not elsewhere classified; I35.1 Nonrheumatic aortic (valve) insufficiency; E78.5 Hyperlipidemia, unspecified; E87.6 Hypokalemia; N20.0 Calculus of kidney; R65.20 Severe sepsis without septic shock; Z51.5 Encounter for palliative care; Z66 Do not resuscitate; E11.22 Type 2 diabetes mellitus with diabetic chronic kidney disease; M19.90 Unspecified osteoarthritis, unspecified site; E11.42 Type 2 diabetes mellitus with diabetic polyneuropathy; N18.9 Chronic kidney disease, unspecified; G47.33 Obstructive sleep apnea (adult) (pediatric); D64.9 Anemia, unspecified; Z86.73 Personal history of transient ischemic attack (TIA), and cerebral infarction without residual deficits; Z90.710 Acquired absence of both cervix and uterus; Z98.51 Tubal ligation status; Z87.442 Personal history of urinary calculi; Z91.19 Patient's noncompliance with other medical treatment and regimen; Z95.2 Presence of prosthetic heart valve; Z99.3 Dependence on wheelchair
CPT/HCPCS: 51702; 76770; 82306; 82570; 82607; 82746; 82784; 82805; 82962; 83036; 83540; 83550; 83605; 83735; 84100; 84145; 84155; 84156; 84165; 84300; 84439; 84443; 84540; 85379; 86334; 87040; 87081; 87086; 87449; 87804; 87899; 89050; 93005; 93306; 93970; 94640; 94660; 96365; 96366; 96368; 96375; 99291; C9113; J0290; J0456; J0696; J0885; J1170; J1644; J1815; J1940; J2060; J2543; J3370; J3480; J7040; J7050; J7060